=== PATIENT | female | born 1980 | race Hispanic/Latino ===

== ENCOUNTER 2016-07-05 01:48 | Inpatient (IN) | payer OTHER ==
[~2016-07-05] VITALS: Ht 167.6 cm; Wt 104.3 kg
[2016-07-06] MEDS ORDERED: Lactated Ringer's 1,000 ML IV PRN (08:12)
[2016-07-06] MEDS ORDERED: Sodium Chloride LOK Flush 10 mL Syringe IVFLUSH PRN (08:15)
[2016-07-06] MEDS ORDERED: Ondansetron 2 mg/mL 2 mL Inj IVPUSH PRN (08:15)
[2016-07-06] MEDS ORDERED: Hemorrhage Kit, Post Partum XX ONE ×2 (08:15→14:20)
[2016-07-06] MEDS ORDERED: Methylergonovine 0.2 mg/mL Inj IM PRN ×2 (08:15→14:20)
[2016-07-06] MEDS ORDERED: Oxytocin 30 Units/500 mL LR 30 UNITS in IV Premix 1 EACH IV PRN ×3 (08:15→14:20)
[2016-07-06] MEDS ORDERED: Carboprost 250 mCg/mL Inj IM PRN ×2 (08:15→14:20)
[2016-07-06] MEDS ORDERED: Oxytocin 10 Unit/mL Inj IM PRN ×2 (08:15→14:20)
[2016-07-06] MEDS ORDERED: Lactated Ringer's 1,000 ML IV SCH (08:19)
[2016-07-06 09:20] LABS: Mean Corpuscular Hemoglobin 25.7 pg (27.0-35.0); Mean Corpuscular Volume 77.5 fL (81-100)
[2016-07-06] MEDS: fentaNYL-PF 50 mCg/mL 2 mL Inj IVPUSH PRN ×2 (11:10→12:19)
[2016-07-06] MEDS: Lactated Ringer's 1,000 ML IV SCH ×2 (14:17→22:17)
[2016-07-06] MEDS ORDERED: Measles-Mumps-Rubella Vaccine 0.5 mL Inj SUBQ ONE (14:20)
[2016-07-06] MEDS ORDERED: LANOlin HPA 7 Gm Ointment TOPICAL PRN (14:20)
[2016-07-06] MEDS ORDERED: HYDROcodone-APAP 5-325 mg Tablet PO PRN (14:20)
[2016-07-06] MEDS ORDERED: TdaP Vaccine 0.5 mL Inj IM ONE (14:20)
[2016-07-06] MEDS ORDERED: Benzocaine (Dermoplast) 20% 60 Gm Spray TOPICAL PRN (14:20)
[2016-07-06] MEDS ORDERED: Influenza (Adult) Vaccine 0.5 mL Syringe IM ONE (14:20)
[2016-07-06] MEDS ORDERED: Witch Hazel-Glycerin Pads TOPICAL PRN (14:20)
--- NOTE | 2016-07-06 20:41 | OP ---
[address] [address] OPERATIVE REPORT PATIENT: FABIANA ROSARIO : 1980 MR#: [id number] ADMIT: 07/06/2016 JOB ID: [id number] 07/06/2016 TIME: 1330 hours SURGEON: Nick Knutson MD [facility] NOTE: The patient was admitted to [facility] on July 06, 2016 for labor induction in the setting of a 39 week with history of macrosomia (though this baby appeared more typical in size) and with history of rapid labors. She requested labor induction to try to avoid large baby as well as to try to avoid delivery en route to the hospital. At 39 weeks plus she was admitted this morning with cervix at 2.5 -1/2 cm dilated and 50% effaced. Artificial rupture membranes was ultimately accomplished and clear fluid recovered, and uterine contractions developed with intensity, aided also by low-dose Pitocin therapy. The patient did receive fentanyl for a couple of doses intravenously but did not have epidural. Active phase of labor was traversed rather rapidly and second stage of labor was very very short. heart tracing was okay throughout. Once , head then delivered across an intact perineum, followed by the shoulders, body, and extremities. Baby was active and crying, and handed to mother for bonding and further nurse management. After a minute of delay, the umbilical cord was clamped and cut, and cord blood was obtained for routine studies. Betadine solution was used to cleanse the vulvovaginal region. There were no lacerations noted. Note that the placenta with membranes gradually . There was approximately 300 mL of blood passing during this process. Once placenta and membranes were spontaneously expelled, intrauterine examination was accomplished with removal of some clots, yet no additional placental or membranous material. Uterus then contracted well and bleeding was scant at procedure's close. Instrument, needle, and sponge counts were all found to be correct. Baby was active and crying. It certainly is anticipated that mother and baby will do very well during the timeframe. Note that the senior oracle adf developer will track baby's progress. Note that baby appeared potentially to be a little bit sleepy during the first few minutes following , perhaps in relation to the 2nd fentanyl dose administered per nurse, although senior oracle adf developer felt there were no significant concerns and gave baby back to mother. MTDD
--- NOTE | 2016-07-07 04:08 | HP ---
[address] [address] HISTORY AND PHYSICAL PATIENT: FABIANA ROSARIO : 1980 MR#: [id number] ADMIT: 07/06/2016 JOB ID: [id number] DATE: [facility] NOTE: The patient is a 36-year-old, G 4, P 3, AB 0, woman, followed prenatally at [facility], see record for details. Due date is July 12, 2016, placing patient at 39 and 1/7 weeks of gestation on admission. The patient requested labor induction in the setting of prior macrosomia x1, hoping to have a smaller baby, and this has been suggested by recent ultrasound. Note however that abdominal circumference was 2-3 weeks larger relative to other biometrics, thus potential increasing the risk of shoulder dystocia. The patient also had reported steadily shortening labors in the past, last only 3 hours, and she has been concerned that she would not make to the hospital to deliver the baby. Thus, her request for labor induction was granted. Otherwise, has been relatively uncomplicated. She had declined quad screen although she had undergone level two ultrasound. Note that she also had had positive antibody screen, anti M, yet this is not a clinically significant antibody. Group B strep test is negative and rubella immune and Rh is positive. In summary, the patient has been admitted to [facility] on July 06, 2016 for labor induction at her request at 39 and 1/7 weeks of gestation. PHYSICAL EXAMINATION: On admission, height 66 inches, last weight in the office 126 pounds and last blood pressure 112/80. Neck: No thyromegaly. Lungs: Clear to auscultation and percussion. Heart: Regular in rate and rhythm. Abdomen: Nontender, no mass. No surgical scarring. Pelvic examination: The vulva, vagina and cervix with no obvious epithelial abnormality noted. Cervix 2.5 cm, 50% and bag of water intact. Vertex presentation. IMPRESSION: 1. A 39 1/7 weeks . 2. The patient requested labor induction in the setting of prior macrosomia, potential increased risk of shoulder dystocia on the basis of abdominal circumference, large, compared to other biometrics and also in light of prior rapid labors. 3. Size significantly greater than dates although ultrasound accomplished one week prior to admission had suggested 7 1/2 pound fetus. 4. Potential increased risk of shoulder dystocia on the basis that abdominal circumference is larger than other biometrics by two to three weeks. 5. Prior three vaginal deliveries, with labor rapid, the last lasting only 3 hours, with the largest baby 8 pounds 15 ounces, her first. Note increased blood loss reportedly following the second delivery. 6. Positive antibody screen during although not clinically significant (anti M). 7. Advanced maternal age, did level 2 sonogram, note declined quad screen. 8. Urinary tract infection in . 9. No net weight gain in . 10. Rh positive status. 11. Rubella immune status. 12. Group B strep test negative. 13. Increased weight. 14. History of "spinal defect" years ago, and because of which the patient has not reportedly received epidurals during her pregnancies. 15. Prior hand surgery (1994). 16. Family history of diabetes (parents), hypertension (parents), twins (both sides), and congenital anomaly (niece's baby). PLAN: The patient has been admitted to [facility] for labor induction at her request on July 06, 2016. Artificial rupture of membranes and Pitocin therapy will be utilized. Nick Knutson MD [facility]
[2016-07-07 06:59] LABS: Mean Corpuscular Hemoglobin 25.7 pg (27.0-35.0); Mean Corpuscular Volume 77.7 fL (81-100)
[2016-07-07] MEDS ORDERED: Measles-Mumps-Rubella Vaccine 0.5 mL Inj SUBQ ONE (08:30)
--- NOTE | 2016-07-07 08:32 | PCM.DIOB ---
Obstetrical Disch Instruction Dates of Hospitalization Date of Hospital Admission Jul 06, 2016 at 06:59 Providers Admitting Physician: Nick Knutson MD Primary Care Physician: Nick Knutson MD Attending Physician: Nick Knutson MD Discharge Diagnosis Problems: (1) Status: Acute ICD Code: Z33.1 Diet Discharge Diet: No restrictions Activity Discharge Activity-General: Pelvic Rest for 6 weeks Dressing and Incisional Care Hygiene: May shower, Perineal care, Sitz bath, Dermoplast spray, Witch Crissy pads, Ice Follow Up Plan Follow-up appointment: Weeks (Follow up in 6 weeks for visit with Dr. Knutson) Call your provider for: Fever or Chills, Shortness of breath, Heavy vaginal bleeding, Red painful breasts Nick Knutson MD Jul 07, 2016 08:32
[2016-07-07] MEDS ORDERED: IBUP-1827 PO (08:33)
[2016-07-07 09:11] VITALS: BP 88/56; PULSE 74; RESP 16
[2016-07-07] MEDS: Lactated Ringer's 1,000 ML IV SCH (13:57)
--- NOTE | 2016-07-07 17:05 | DIS ---
[address] [address] DISCHARGE SUMMARY PATIENT: FABIANA ROSARIO : 1980 MR#: [id number] ADMIT: 07/06/2016 JOB ID: [id number] DIS: DISCHARGE DIAGNOSIS: Term , delivered. PROCEDURES PERFORMED DURING HOSPITALIZATION: 1. Labor induction. 2. Vaginal delivery. 3. Intravenous fentanyl placement for anesthesia during labor. HOSPITAL COURSE: The patient presented to the hospital on 07/06/2016, on which date various procedures (listed above) occurred. During the time frame the patient did very well, with stable vitals, afebrile, with reasonable bleeding and pain management, ambulating and voiding, without leg pain or shortness of breath, and handling baby well. Postpartumhemoglobin was okay. She was interested in discharge to home on the first day. DISCHARGE MEDICATION: Ibuprofen 600 mg, prescription written. DISCHARGE PROGRAM: The patient will call p.r.n. heavy bleeding, high fever, or other problem, yet otherwise she will follow up at six weeks for checkup. She will observe pelvic rest for six weeks. Note that patient did have rather rapid active phase of labor and rather rapid 2nd stage. The patient does not plan on having additional children, although we will keep this rapid labor in mind if in fact another is undertaken. Her is planning on having a vasectomy, although she indicates that he changes his mind she will want a tubal ligation. THERESA
== END 2016-07-07 17:15 | disposition home or self-care (01) | DRG 775 ==
LOC: FBC 07-06 06:59
PROVIDERS: ADMIT Obstetrics & Gynecology; ATTEND Obstetrics & Gynecology
PROC: 10E0XZZ Delivery of Products of Conception, External Approach (ICD-10-PCS; principal; 2016-07-06)
PROC: 10907ZC Drainage of Amniotic Fluid, Therapeutic from Products of Conception, Via Natural or Artificial Opening (ICD-10-PCS; 2016-07-06)
PROC: 3E033VJ Introduction of Other Hormone into Peripheral Vein, Percutaneous Approach (ICD-10-PCS; 2016-07-06)
DX: O36.63X0 Maternal care for excessive fetal growth, third trimester, not applicable or unspecified (principal); O09.523 Supervision of elderly multigravida, third trimester; Z3A.39 39 weeks gestation of pregnancy; Z37.0 Single live birth